=== PATIENT | male | born 1990 | race Caucasian/White ===

== ENCOUNTER 2017-12-19 01:18 | Emergency (ER) | payer SELFPAY ==
--- NOTE | 2017-12-19 01:53 | EDM.PDOC ---
ED HPI GENERAL MEDICAL PROBLEM - General Chief Complaint: ENT Problem Stated Complaint: THROAT PAIN AND EAR PAIN Time Seen by Provider: 12/19/17 01:42 Source of Information: Reports: Patient, RN Notes Reviewed - History of Present Illness INITIAL COMMENTS - FREE TEXT/NARRATIVE: 27-year-old male comes in with throat discomfort. He feels like his throat is swollen. He states that when he lays down to sleep he chokes and gags. He has had some mild nasal and sinus congestion. Very occasional nonproductive cough. No fever or chills. His throat feels scratchy and irritated. There is some pain with swallowing. 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 [No Known Home Meds] 12/19/17 [History] Past Medical History - Past Health History Medical/Surgical History: Denies Medical/Surgical History Social & Family History - Tobacco Use Smoking Status *Q: Never Smoker - Caffeine Use Caffeine Use: Reports: None - Recreational Drug Use Recreational Drug Use: Yes Drug Use in Last 12 Months: No Recreational Drug Type: Reports: Other (see below) Other Recreational Drug Type: "speed" ED ROS ENT - Review of Systems Review Of Systems: See Below Constitutional: Denies: Fever, Chills HEENT: Reports: Throat Pain, Other (When he lies back he feels like his throat is getting obstructed, he gags, finds it difficult to swallow and breathe) Respiratory: Reports: Shortness of Breath (When he lies back or lies flat) Cardiovascular: Denies: Chest Pain GI/Abdominal: Denies: Abdominal Pain, Vomiting Musculoskeletal: Reports: No Symptoms Skin: Reports: No Symptoms Neurological: Reports: No Symptoms ED EXAM, ENT - Physical Exam Exam: See Below General Appearance: Alert, No Apparent Distress Mouth/Throat: Pharyngeal Erythema, Other (Uvula is swollen). No: Tonsillar Exudates Head: No: Facial Swelling Neck: Supple, Full Range of Motion. No: Lymphadenopathy (L), Lymphadenopathy (R ) Respiratory/Chest: No Respiratory Distress, Lungs Clear, Normal Breath Sounds. No: Rhonchi, Wheezing Cardiovascular: Regular Rate, Rhythm Extremities: Normal Inspection, Normal Range of Motion Neurological: Alert, Oriented, No Motor/Sensory Deficits Skin: Warm, Dry, Normal Color Course - Vital Signs Last Recorded V/S: Last Vital Signs Temp 99.0 F 12/19/17 01:25 Pulse 82 12/19/17 01:25 Resp 18 12/19/17 01:25 BP 146/102 H 12/19/17 01:25 Pulse Ox 100 12/19/17 01:25 Departure - Departure Time of Disposition: 01:51 Disposition: Home, Self-Care 01 Condition: Fair Clinical Impression: Uvulitis - Discharge Information Instructions: Uvulitis Referrals: PCP,None [Primary Care Provider] - Forms: ED Department Discharge Additional Instructions: advil or ibuprofen 800 mg 3 times daily with food for swelling, inflamation. Drink plenty of water to maintain hydration. Excellent antibiotic 500 mg 4 times daily for 1 week or until gone.
== END 2017-12-19 02:00 | disposition home or self-care (01) ==
LOC: JD.ED 01:18
DX: K12.2 Cellulitis and abscess of mouth (principal)
CPT/HCPCS: 99283